=== PATIENT | male | born 1970 | race Two or more races ===

== ENCOUNTER 2017-03-08 12:23 | Emergency (ER) | payer BC ==
[~2017-03-08] VITALS: Ht 167.6 cm; Wt 94.3 kg
[~2017-03-08 12:23] MED LIST: ATOR10TA60 PO; HYDR-2758 PO; METO10TA81 PO; ONDA4TAB10 SL; [UNRECOGNIZED DRUG - OTHER]; exforge; januvia
[2017-03-08] MEDS ORDERED: IV NORMAL SALINE 1000ML BAG 1,000 ML IV SCH (13:03)
[2017-03-08] MEDS ORDERED: fentaNYL PF VIAL 100 MCG/2 ML VIAL IV PRN (13:15)
[2017-03-08] MEDS ORDERED: FAMOTIDINE 20 MG/2 ML VIAL IVP ONE (13:15)
[2017-03-08] MEDS ORDERED: ONDANSETRON PF 4 MG/2 ML VIAL. IV ONE (13:15)
[2017-03-08 13:18] LABS: BILIRUBIN,URINE NEGATIVE (NEG); GLUCOSE,URINE NEGATIVE (NEG); NITRITE,URINE NEGATIVE (NEG); PROTEIN,URINE NEGATIVE (NEG-TRACE)
--- NOTE | 2017-03-08 13:30 | PHYS DOC ---
Past Medical History Past Medical History: Diabetes-Type II, Hypertension, Pneumonia Past Surgical History: Other Additional Past Surgical Histo: lung surgery Alcohol Use: Occasionally Drug Use: None Adult General Chief Complaint Chief Complaint: ABDOMINAL PAIN HPI HPI Patient is a 47 year old male who presents with complaint of abdominal pain. Patient states that his symptoms started 2 days ago and have been continuous since. Patient states that he has had history of recurrent abdominal pain. Patient also has history of chronic back pain and is currently on hydrocodone and tramadol therapy. Patient states that he had a bowel movement on Thursday which was normal, however he has had only a small bowel movement since. Patient' s pain is generalized but states that he is having sharp pain along the left side of his body. Patient patient has had associated nausea and vomiting today. Patient denies any bloody stools. Patient rates his pain currently as 9 out of 10. Review of Systems Review of Systems Constitutional: Denies fever or chills [] Eyes: Denies change in visual acuity, redness, or eye pain [] HENT: Denies nasal congestion or sore throat [] Respiratory: Denies cough or shortness of breath [] Cardiovascular: No additional information not addressed in HPI [] GI: Abdominal pain, nausea, vomiting, denies bloody stools or diarrhea [] : Denies dysuria or hematuria [] Musculoskeletal: Chronic back pain [] Integument: Denies rash or skin lesions [] Neurologic: Denies headache, focal weakness or sensory changes [] Current Medications Current Medications Current Medications Medications (Trade) Dose Ordered Sig/John Start Time Stop Time Status Last Admin Dose Admin Famotidine (Pepcid) 20 mg 1X ONCE 03/08/17 13:15 03/08/17 13:16 DC 03/08/17 13:41 20 MG Fentanyl Citrate (Fentanyl 2ml Vial) 50 mcg PRN Q15MIN PRN 03/08/17 13:15 03/08/17 14:34 DC 03/08/17 13:40 50 MCG Ondansetron HCl (Zofran) 4 mg 1X ONCE 03/08/17 13:15 03/08/17 13:16 DC 03/08/17 13:39 4 MG Sodium Chloride 1,000 ml @ 1,000 mls/hr Q1H 03/08/17 13:03 03/08/17 14:02 DC 03/08/17 13:31 1,000 MLS/HR Allergies Allergies Allergies Coded Allergies Type Severity Reaction Last Updated Verified No Known Drug Allergies 09/10/14 No Physical Exam Physical Exam Constitutional: Alert, afebrile, appears in moderate discomfort. [] HENT: Normocephalic, atraumatic, bilateral external ears normal, oropharynx moist, no oral exudates, nose normal. [] Eyes: PERRLA, EOMI, conjunctiva normal, no discharge. [] Neck: Normal range of motion, no tenderness, supple, no stridor. [] Cardiovascular:Heart rate regular rhythm, no murmur [] Lungs & Thorax: Bilateral breath sounds clear to auscultation [] Abdomen: Bowel sounds normal, soft, epigastric and left upper quadrant tenderness to palpation with guarding, rebound tenderness, no masses, no pulsatile masses. [] Skin: Warm, dry, no erythema, no rash. [] Back: No tenderness, no CVA tenderness. [] Extremities: No tenderness, no cyanosis, no clubbing, ROM intact, no edema. [] Neurologic: Alert and oriented X 3, normal motor function, normal sensory function, no focal deficits noted. [] Current Patient Data Vital Signs Vital Signs Date Time Temp Pulse Resp B/P (MAP) Pulse Ox O2 Delivery O2 Flow Rate FiO2 03/08/17 14:35 65 20 179/81 (113) 98 03/08/17 13:40 Room Air 03/08/17 12:37 98.2 98.2 Lab Values Laboratory Tests Test 03/08/17 12:33 03/08/17 13:12 Urine Collection Type Unknown Urine Color Yellow Urine Clarity Clear Urine pH 7.0 Urine Specific [place] 1.025 Urine Protein Negative mg/dL (NEG-TRACE) Urine Glucose (UA) Negative mg/dL (NEG) Urine Ketones (Stick) Negative mg/dL (NEG) Urine Blood Negative (NEG) Urine Nitrite Negative (NEG) Urine Bilirubin Negative (NEG) Urine Urobilinogen Dipstick 1.0 mg/dL (0.2 mg/dL) Urine Leukocyte Esterase Negative (NEG) Urine RBC 0 /HPF (0-2) Urine WBC Occ /HPF (0-4) Urine Squamous Epithelial Cells Occ /LPF Urine Bacteria 0 /HPF (0-FEW) Urine Hyaline Casts Few /HPF Urine Mucus Marked /LPF White Blood Count 10.9 x10^3/uL (4.0-11.0) Red Blood Count 4.58 x10^6/uL (4.30-5.70) Hemoglobin 14.1 g/dL (13.0-17.5) Hematocrit 40.0 % (39.0-53.0) Mean Corpuscular Volume 87 fL (79-100) Mean Corpuscular Hemoglobin 31 pg (25-35) Mean Corpuscular Hemoglobin Concent 35 g/dL (31-37) Red Cell Distribution Width 12.4 % (11.5-14.5) Platelet Count 250 x10^3/uL (140-400) Neutrophils (%) (Auto) 84 % (31-73) H Lymphocytes (%) (Auto) 12 % (24-48) L Monocytes (%) (Auto) 4 % (0-9) Eosinophils (%) (Auto) 0 % (0-3) Basophils (%) (Auto) 1 % (0-3) Neutrophils # (Auto) 9.1 x10^3uL (1.8-7.7) H Lymphocytes # (Auto) 1.3 x10^3/uL (1.0-4.8) Monocytes # (Auto) 0.5 x10^3/uL (0.0-1.1) Eosinophils # (Auto) 0.0 x10^3/uL (0.0-0.7) Basophils # (Auto) 0.0 x10^3/uL (0.0-0.2) Sodium Level 136 mmol/L (136-145) Potassium Level 3.4 mmol/L (3.5-5.1) L Chloride Level 99 mmol/L (98-107) Carbon Dioxide Level 23 mmol/L (21-32) Anion Gap 14 (6-14) Blood Urea Nitrogen 13 mg/dL (8-26) Creatinine 1.2 mg/dL (0.7-1.3) Estimated GFR (Cockcroft-Gault) 64.6 BUN/Creatinine Ratio 11 (6-20) Glucose Level 164 mg/dL (70-99) H Calcium Level 9.6 mg/dL (8.5-10.1) Total Bilirubin 0.8 mg/dL (0.2-1.0) Aspartate Amino Transferase (AST) 32 U/L (15-37) Alanine Aminotransferase (ALT) 46 U/L (16-63) Alkaline Phosphatase 65 U/L (46-116) Total Protein 8.4 g/dL (6.4-8.2) H Albumin 4.4 g/dL (3.4-5.0) Albumin/Globulin Ratio 1.1 (1.0-1.7) Lipase 118 U/L (73-393) Laboratory Tests 03/08/17 13:12 Laboratory Tests 03/08/17 13:12 EKG EKG Interpreted by me: Heart rate 70, sinus rhythm, normal intervals, normal axis, T -wave inversions in the lateral leads and in V2 through V6, ST depressions in V4 through V6 and in the lateral leads, no acute ST elevations, no acute changes from previous EKG on July 07, 2016 [] Radiology/Procedures Radiology/Procedures [facility] [address] [place] [address] IMAGING REPORT Signed PATIENT: KOLE LEIGH ACCOUNT: [id number] : 1970 LOCATION: ER AGE: 47 SEX: M EXAM STATUS: REG ER ORD. PHYSICIAN: RUFINO VALENCIA MD REASON: abdominal pain PROCEDURE: ACUTE ABDOMEN SERIES ACUTE ABDOMEN SERIES History: abdominal pain x3 days Comparison: Two-view chest 09/10/2014. Findings: Frontal chest and supine and upright views of the abdomen. Cardiomediastinal silhouette is normal. There is unchanged elevation of the right hemidiaphragm and blunting of the right costophrenic angle. There is no pleural effusion or pneumothorax. The lungs are clear. No pneumoperitoneum is identified. There are several segments of air-filled small bowel in the left midabdomen that are nondilated. The small bowel mucosal folds are normal and the spacing of the bowel loops does not suggest wall thickening. There is stool in the ascending colon. No air-fluid levels on the upright image. IMPRESSION: 1. No acute cardiopulmonary process. 2. Nonobstructive bowel gas pattern. DICTATED and SIGNED BY: ZO BANGURA MD DATE: 03/08/17 1586 CC: RUFINO VALENCIA MD; EDEN JONHSON MD ~ [] Course & Med Decision Making Course & Med Decision Making Pertinent Labs and Imaging studies reviewed. (See chart for details) Patient was given IV for no, Pepcid, Zofran, and IV fluids. Patient's lab work and x-rays are unremarkable at this time. I suspect the patient's symptoms are likely due to constipation secondary to chronic pain medication treatment for back pain. Due to patient's use of chronic narcotic meds for pain, I have chosen to start the patient on Relistor to help improve bowel movements and to trial this for help with patient's discomfort. I recommended that the patient follow-up in the next 3 days with his primary doctor for reevaluation and to return to the emergency department for any worsening symptoms. Patient voiced understanding and in agreement with treatment plan. Dragon Disclaimer Dragon Disclaimer This electronic medical record was generated, in whole or in part, using a voice recognition dictation system. Departure Departure Impression: Primary Impression: Abdominal pain Additional Impression: Nausea and vomiting Disposition: 01 HOME, SELF-CARE Condition: IMPROVED Referrals: EDEN JOHNSON MD (PCP) Patient Instructions: Abdominal Pain (Nonspecific), Nausea and Vomiting Additional Instructions: Follow-up to primary doctor in the next 3 days. Return to emergency department for any worsening symptoms. Scripts Ondansetron (ZOFRAN ODT) 4 Mg Tab.rapdis 1 TAB SL Q8HRS Y for NAUSEA/VOMITING, #15 TAB Prov: RUFINO VALENCIA MD 03/08/17 Polyethylene Glycol 3350 (MIRALAX) 17 Gm Powd.pack 1 PACKET PO DAILY Y for CONSTIPATION, #30 PACKET 0 Refills Prov: RUFINO VALENCIA MD 03/08/17 Methylnaltrexone [place] (Relistor) 150 Mg Tablet 450 MG PO DAILYAC, #90 TAB Take 30 minutes before breakfast. Prov: RUFINO VALENCIA MD 03/08/17 Problem Qualifiers Primary Impression: Abdominal pain Abdominal location: generalized Qualified Codes: R10.84 - Generalized abdominal pain Additional Impression: Nausea and vomiting Vomiting type: unspecified Vomiting Intractability: non-intractable Qualified Codes: R11.2 - Nausea with vomiting, unspecified RUFINO VALENCIA MD Mar 08, 2017 13:30
[2017-03-08 13:31] LABS: BACTERIA,URINE 0 /HPF (0-FEW); RBC,URINE 0 /HPF (0-2); SQUAMOUS EPITHELIAL CELL,UR OCC /LPF; WBC,URINE OCC /HPF (0-4)
[2017-03-08 13:41] LABS: BASO % 1 % (0-3); EOS % 0 % (0-3); HEMOGLOBIN 14.1 g/dL (13.0-17.5); LYMPH # 1.3 x10^3/uL (1.0-4.8); LYMPH % 12 % (24-48); MEAN CORPUSCULAR HEMOGLOBIN 31 pg (25-35); MEAN CORPUSCULAR HGB CONC 35 g/dL (31-37); MEAN CORPUSCULAR VOLUME 87 fL (79-100); MONO % 4 % (0-9); NEUT % 84 % (31-73); PLATELET COUNT 250 x10^3/uL (140-400); RED BLOOD COUNT 4.58 x10^6/uL (4.30-5.70); RED CELL DISTRIBUTION WIDTH 12.4 % (11.5-14.5); WHITE BLOOD COUNT 10.9 x10^3/uL (4.0-11.0)
[2017-03-08 13:52] LABS: CALCIUM 9.6 mg/dL (8.5-10.1); CREATININE 1.2 mg/dL (0.7-1.3); GFR 64.6; POTASSIUM 3.4 mmol/L (3.5-5.1)
[2017-03-08 13:59] LABS: ALBUMIN 4.4 g/dL (3.4-5.0); ALBUMIN/GLOBULIN RATIO 1.1 (1.0-1.7); TOTAL BILIRUBIN 0.8 mg/dL (0.2-1.0); TOTAL PROTEIN 8.4 g/dL (6.4-8.2)
--- NOTE | 2017-03-08 14:01 | RAD ---
ACUTE ABDOMEN SERIES History: abdominal pain x3 days Comparison: Two-view chest 09/10/2014. Findings: Frontal chest and supine and upright views of the abdomen. Cardiomediastinal silhouette is normal. There is unchanged elevation of the right hemidiaphragm and blunting of the right costophrenic angle. There is no pleural effusion or pneumothorax. The lungs are clear. No pneumoperitoneum is identified. There are several segments of air-filled small bowel in the left midabdomen that are nondilated. The small bowel mucosal folds are normal and the spacing of the bowel loops does not suggest wall thickening. There is stool in the ascending colon. No air-fluid levels on the upright image. IMPRESSION: 1. No acute cardiopulmonary process. 2. Nonobstructive bowel gas pattern.
[2017-03-08] MEDS ORDERED: METH150T PO (14:22)
[2017-03-08] MEDS ORDERED: POLY17PO29 PO (14:22)
[2017-03-08] MEDS ORDERED: ONDA4TAB10 SL (14:31)
[2017-03-08 14:35] VITALS: BP 179/81
--- NOTE | 2017-03-09 06:28 | EKG ---
[facility] [address] [place] [address] Test Date: 2017-03-08 Test Time: 13:14:02 Pat Name: KOLE LEIGH Department: Room: Gender: M Community Services Officer: : 1970 Requested By: RUFINO VALENCIA Order Number: [id number] Reading MD: Measurements Intervals [place] Rate: 70 P: 59 NH: 152 QRS: 75 QRSD: 100 T: 126 QT: 410 QTc: 446 Interpretive Statements SINUS RHYTHM LEFT ATRIAL ABNORMALITY ST & T ABNORMALITY, CONSIDER ANTEROLATERAL ISCHEMIA OR LEFT VENTRICULAR STRAIN T ABNORMALITY IN ANTERIOR LEADS ABNORMAL ECG RI6.01 No previous ECG available for comparison
== END 2017-03-08 14:34 | disposition home or self-care (01) ==
LOC: ER 12:23
DX: R10.84 Generalized abdominal pain (principal); M54.9 Dorsalgia, unspecified; R11.2 Nausea with vomiting, unspecified; G89.29 Other chronic pain; E11.9 Type 2 diabetes mellitus without complications; I10 Essential (primary) hypertension; Z87.01 Personal history of pneumonia (recurrent)
CPT/HCPCS: 36415; 74022; 80053; 81001; 83690; 85027; 93005; 96361; 96374; 96375; 99285; J2405; J3010; J7030; S0028

== ENCOUNTER 2017-11-25 21:03 | Emergency (ER) | payer BC ==
[2017-11-25 23:03] LABS: ADD MAN DIFF? NO
[2017-11-25 23:05] LABS: BASO % 0 % (0-3); EOS % 0 % (0-3); HEMATOCRIT 43.3 % (39.0-53.0); HEMOGLOBIN 15.3 g/dL (13.0-17.5); LYMPH # 1.7 x10^3/uL (1.0-4.8); LYMPH % 15 % (24-48); MEAN CORPUSCULAR HEMOGLOBIN 30 pg (25-35); MEAN CORPUSCULAR HGB CONC 35 g/dL (31-37); MEAN CORPUSCULAR VOLUME 86 fL (79-100); MONO # 0.4 x10^3/uL (0.0-1.1); MONO % 4 % (0-9); NEUT % 81 % (31-73); PLATELET COUNT 278 x10^3/uL (140-400); RED BLOOD COUNT 5.07 x10^6/uL (4.30-5.70); RED CELL DISTRIBUTION WIDTH 12.4 % (11.5-14.5); WHITE BLOOD COUNT 11.1 x10^3/uL (4.0-11.0)
[2017-11-25 23:14] LABS: ANION GAP 15 (6-14); BLOOD UREA NITROGEN 19 mg/dL (8-26); BUN/CREATININE RATIO 13 (6-20); CALCIUM 10.1 mg/dL (8.5-10.1); CARBON DIOXIDE 21 mmol/L (21-32); CHLORIDE 101 mmol/L (98-107); CREATININE 1.5 mg/dL (0.7-1.3); GFR 49.9; GLUCOSE 196 mg/dL (70-99); POTASSIUM 3.2 mmol/L (3.5-5.1); SODIUM 137 mmol/L (136-145)
[2017-11-25] MEDS: IV NORMAL SALINE 1000ML BAG 1,000 ML IV (23:17)
[2017-11-25] MEDS: ONDANSETRON PF 4 MG/2 ML VIAL. IV (23:18)
[2017-11-25] MEDS: KETOROLAC 30 MG/ML INJ. IV (23:18)
[2017-11-25 23:20] LABS: ALBUMIN 4.8 g/dL (3.4-5.0); ALBUMIN/GLOBULIN RATIO 1.1 (1.0-1.7); ALK PHOS 80 U/L (46-116); ALT (SGPT) 96 U/L (16-63); AST (SGOT) 43 U/L (15-37); LIPASE 171 U/L (73-393); TOTAL BILIRUBIN 1.2 mg/dL (0.2-1.0)
[2017-11-25] MEDS ORDERED: CONTRAST GIVEN MC (23:30)
[2017-11-25] MEDS: IOHEXOL 300 MG/ML 100ML VIAL. IV (23:50)
[2017-11-26] MEDS ORDERED: MORPHINE SULFATE 4 MG/ML DISP.SYRIN. (00:36)
[2017-11-26] MEDS: MORPHINE SULFATE 2 MG/ML DISP.SYRIN. IV (00:38)
[2017-11-26 01:50] LABS: BILIRUBIN,URINE NEGATIVE (NEG); CLARITY,URINE CLEAR; COLOR,URINE YELLOW; GLUCOSE,URINE 100 mg/dL (NEG); NITRITE,URINE NEGATIVE (NEG); PH,URINE 6.5; PROTEIN,URINE 100 mg/dL (NEG-TRACE); UROBILINOGEN,URINE 0.2 mg/dL (0.2 mg/dL)
[2017-11-26 01:58] LABS: BACTERIA,URINE 0 /HPF (0-FEW); HYALINE CASTS, URINE MODERATE /HPF; RBC,URINE 0 /HPF (0-2); SQUAMOUS EPITHELIAL CELL,UR FEW /LPF; WBC,URINE OCC /HPF (0-4)
[2017-11-26] MEDS: ONDANSETRON PF 4 MG/2 ML VIAL. IV (02:30)
[2017-11-26] MEDS: HYOSCYAMINE 0.125 MG TAB.RAPDIS PO (02:45)
== END 2017-11-26 03:37 | disposition home or self-care (01) ==
LOC: ER 11-26 03:37
DX: K57.30 Diverticulosis of large intestine without perforation or abscess without bleeding (principal); N28.9 Disorder of kidney and ureter, unspecified; E11.65 Type 2 diabetes mellitus with hyperglycemia; E87.6 Hypokalemia; I10 Essential (primary) hypertension; Z87.01 Personal history of pneumonia (recurrent)
CPT/HCPCS: 36415; 74178; 80053; 81001; 83690; 85025; 96361; 96374; 96375; 96376; 99285-25; J1885; J2270; J2405; J7030; Q9967